=== PATIENT | male | born 1995 | race Hispanic/Latino ===

== ENCOUNTER 2024-07-20 11:38 | Emergency (ER) | payer SELFPAY ==
[2024-07-20] MEDS ORDERED: Dexamethasone 10 MG/ML VIAL ONE (13:39)
[2024-07-20] MEDS ORDERED: predniSONE 20 MG TAB ONE (13:39)
[2024-07-20] MEDS ORDERED: Ipratropium/Albuterol 3 ML NEB ONE (13:43)
[2024-07-20] MEDS ORDERED: Albuterol 2.5 MG (0.5 mL) NEB ONE (13:43)
== END 2024-07-20 14:46 | disposition home or self-care (01) ==
LOC: CSHERS 11:38
DX: R05.1 Acute cough (principal); R06.2 Wheezing; F17.210 Nicotine dependence, cigarettes, uncomplicated
CPT/HCPCS: 96372; J1100; J7512; J7611; J7620